=== PATIENT | female | born 1995 | race Caucasian/White ===

== ENCOUNTER 2021-09-15 05:39 | Outpatient (CLI) | payer MEDICAID ==
[~2021-09-15] VITALS: Ht 152.4 cm; Wt 100.8 kg
[2021-09-15] MEDS ORDERED: LEVO50CA4 PO (13:46)
[2021-09-15] MEDS ORDERED: VENL100T2 PO (13:46)
[2021-09-15] MEDS ORDERED: PROC10TA10 PO (13:46)
[2021-09-15] MEDS ORDERED: PANT40TA52 PO (13:46)
[2021-09-15] MEDS ORDERED: GALC120P SQ (13:46)
[2021-09-15] MEDS ORDERED: NRT10C PO (13:46)
[2021-09-15] MEDS ORDERED: MEMA5TAB43 PO (13:46)
[2021-09-15] MEDS ORDERED: MIRT-68 PO (13:46)
== END 2021-09-15 14:07 | disposition home or self-care (01) ==
LOC: PREOP 05:39
PROVIDERS: ATTEND Otolaryngology Otolaryngology/Facial Plastic Surgery
DX: Z01.818 Encounter for other preprocedural examination (principal)

== ENCOUNTER 2021-09-22 06:51 | Day surgery (SDC) | payer MEDICAID ==
[2021-09-22] VITALS (11 sets, daily range): BP systolic 118–131; BP diastolic 75–98
[~2021-09-22] VITALS: Ht 152.4 cm; Wt 100.8 kg
[~2021-09-22 06:51] MED LIST: GALC120P SQ; LEVO50CA4 PO; MEMA5TAB43 PO; MIRT-68 PO; NRT10C PO; PANT40TA52 PO; PROC10TA10 PO; VENL100T2 PO
--- OUTSIDE RECORDS SUMMARY | 2021-09-22 06:55 | XMS REPORT | Clinical Summary ---
Author Organization Unknown Address Unknown Phone Unavailable Care Team Providers Care Associate Relations Specialist Name Role Phone PP Unavailable Allergies Not on File Medications Not on file Active Problems Not on file Social History Date Tobacco Use Types Packs/Day Years Used Never Assessed Sex Assigned at Date Recorded Not on file Plan of Treatment Not on file Results Not on filefrom Last 3 Months
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
--- OUTSIDE RECORDS SUMMARY | 2021-09-22 06:55 | XMS REPORT | Encounter Summary ---
Author Author [facility] Organization [facility] Address Unknown Phone Unavailable Care Team Providers Care Courtesy Car Driver Name Role Phone Jihan Zavala PCP Encounter Details Care Team Description Date [place] [address] [place] [address] Chronic migraine without aura, intractab le, without status migrainosus (Primary Dx); Headache, chronic daily 09/20/2021 Video Visit [facility] [address] [place] [address] Social History Date Tobacco Use Types Packs/Day Years Used Never Smoker Smokeless Tobacco: Never Used Comments Alcohol Use Standard Drinks/Week No 0 (1 standard drink = 0.6 o z pure alcohol) Sex Assigned at Date Recorded Not on file documented as of this encounter Progress Notes * Jaciel Euceda MD - 09/20/2021 12:30 PM CDT [facility] Neurology Follow Up Note [facility] Date: 09/20/2021 Patient Name: Mookie Garcia PCP: YENY James Was patient consent obtained for video visit/telemedicine platform? Yes For date of service 09/20/2021, the patient was located at her home and I am see ing the patient via epic video visit. from the below location: [facility] [address] [place] [id number] Interval History Mookie was seen today in follow-up regarding her history of chronic daily rita lc headache without aura. She reports she continues to have severe headache on a daily basis. Headaches c ontinue to be a frontal dominant throbbing pain associated with nausea and photo phobia. She will have significant headache about 20 days a month. In the past, she has been on multiple preventative medications including divalpr oex, topiramate, amitriptyline, venlafaxine, verapamil, indomethacin, pregabalin , Abilify, zonisamide, sertraline, buspirone, propranolol, gabapentin, tizanidin e, cyclobenzaprine, Aimovig and lamotrigine. She has tried and failed Botox inj ections. She did have some benefit from cranial nerve blocks, but these were discontinued due to her insurance companies denial of payment. She has also used a TENS unit and Cefaly with some temporary benefit. Currently she is on memantine 5 mg twice daily, nortriptyline 10 mg daily and Em gality 120 mg subcutaneous injection every 28 days. For acute headache, she use s a combination of nortriptyline 10 mg, prochlorpromazine 10 mg and diphenhydram ine 25-50 mg. She tolerates this regimen and does feel that it is helpful. She reports no significant change in her overall headache frequency or intensity with the addition of memantine to her preventative regimen. She reports no alana arent side effects associated with the medication. Past History and Review of Systems Past Medical History: Diagnosis Date Anemia Anxiety Depression Migraine Past Surgical History: Procedure Laterality Date CHOLECYSTECTOMY 11/09/2016 CYST REMOVAL 10/22/2019 Social History Ms. Garcia reports that she has never smoked. She has never used smokeless to bacco. She reports that she does not drink alcohol and does not use drugs. Family History Problem Relation Age of Onset Migraines Mother Hypertension Mother Mental illness Mother Migraines Sister Diabetes Maternal Grandmother Migraines Sister Migraines Sister Review of Systems Review of Systems All other systems negative unless noted elsewhere. Allergies Allergen Reactions Penicillins Rash Medications (Not in a hospital admission) Scheduled Meds Continuous Infusions PRN Meds Physical Exam Vitals Available and Taken on Home Machine: No data recorded Video visits do not have the supported technology for physician to document hear t and lungs exams, and may not have ability to fully document vital signs. Imaging Studies Radiology: IR Lumbar puncture w fluoro Narrative: Patient: MOOKIE GARCIA Sex#: F #: [id number] Ned#: [id number] Location: [address] [address] Procedure Requested: [id number] IR LUMBAR PUNCTURE W FLUORO Reason for Exam: Chronic migraine Exam Ordered: 12/24/2019 1248 Exam Date/Time: 12/24/2019 1308 Begin exam date/time: 12/24/2019 1308 DATE: 12/24/2019 1:24 PM EXAM: IR LUMBAR PUNCTURE W FLUORO INDICATION: Chronic migraine Headache, chronic daily IIH (idiopathic intracranial hypertension) COMPARISON: None. Technique/findings: The lumbar spine was visualized fluoroscopically. The region overlying the lumbar spine was prepared and draped in sterile technique. Local anesthetic was applied with 1% lidocaine. Following this, a 22-gauge spinal needle was advanced to the L2-L3 interspace with prompt return of clear, colorless CSF. Opening pressure measured at approximately 23 cm H2O 11 cc of CSF was collected for laboratory analysis. Needle removed. Hemostasis achieved. No immediate competitions and the patient tolerated the procedure well. Impression: Successful lumbar puncture as described. Preprocedure: Risk, benefits, and alternatives were discussed in detail with the patient. She agreed to proceed. Procedural pause performed in the presence of all assisting personnel. Assessment and Plan There are no hospital problems to display for this patient. Mookie continues to report chronic daily headache and reports no overall montanez e in her headache frequency or intensity with the addition of low-dose memantine 5 mg twice daily. Today, I have instructed her to increase memantine to 10 mg twice daily. In 1 w tolowa dee-ni', she will also increase nortriptyline to 20 mg daily for a period of 2 weeks , then 30 mg daily. She will continue to use a combination of nortriptyline 10 mg, prochlorperazine 10 mg and diphenhydramine 25-50 mg as rescue medication for severe headache. She did say that she plans to call her insurance carrier to see if they will now cover cranial nerve blocks as a part of her therapeutic regimen. I have asked her to return in 8 weeks, to report on her response to these change s in her medical regimen. >50% of this 25 minute video visit spent in coordination of care and counseling. Jaciel Euceda MD 09/20/2021, 12:37 PM documented in this encounter Plan of Treatment Not on filedocumented as of this encounter Visit Diagnoses Diagnosis Chronic migraine without aura, intracta ble, without status migrainosus - Primary Headache, chronic daily documented in this encounter Care Teams Start Date End Date Courtesy Car Driver Relationship Specialty 12/11/19 Jihan Zavala ARNP PCP - General [address] [address] documented as of this encounter
--- OUTSIDE RECORDS SUMMARY | 2021-09-22 06:55 | XMS REPORT | Clinical Summary ---
Author Author [facility] Organization [facility] Address Unknown Phone Unavailable Care Team Providers Care Gas Reverser Name Role Phone Jihan Zavala PCP Allergies Comments Active Allergy Reactions Severity Noted Date Penicillins Rash Low 02/21/2018 Medications End Date Status Medication Sig Dispensed Refills Start Date Active mirtazapine (REMERON) 15 Take 15 mg by 0 03/26 MG tablet mouth 9 nightly. Active levothyroxine (SYNTHROID, TAKE 1 TABLET 1 LEVOTHROID) 25 MCG tablet (25 MCG) BY 9 MOUTH ONCE DAILY FOR 90 DAYS Active desvenlafaxine succinate Take 50 mg by 0 (PRISTIQ) 50 MG 24 hr mouth daily. tablet Active cholecalciferol, vitamin Take 50,000 0 D3, (VITAMIN D3 ORAL) Units by mouth daily. Active prochlorperazine TAKE 1 TABLET 30 tablet 5 02 (COMPAZINE) 10 MG (10 MG TOTAL) 1 tabletIndications: BY MOUTH Chronic migraine, Nausea EVERY 8 (EIGHT) HOURS NEEDED. WITH MIGRAINE COCKTAIL Active EMGALITY PEN 120 mg/mL INJECT 1 ML 1 mL injectionIndications: (120 MG 1 Intractable chronic TOTAL) migraine without aura and UNDERTHE SKIN without status EVERY 28 migrainosus DAYS. Active nortriptyline (PAMELOR) 3 caps daily 90 capsule 11 1 10 MG capsule 1 09/15/2022 Active memantine (NAMENDA) 10 MG Take 1 tablet 60 tablet 11 tablet (10 mg total) 1 by mouth 2 (two) times a day. 09/20/2021 Discontinued (Therapy comple ej) nortriptyline (PAMELOR) Take 1 30 capsule 5 10 MG capsuleIndications: capsule (10 1 Chronic migraine without mg total) by aura, intractable, mouth without status nightly. migrainosus 09/20/2021 Discontinued (Therapy comple ej) memantine (NAMENDA) 5 MG Take 1 tablet 60 tablet 3 tabletIndications: (5 mg total) 1 migraine by mouth 2 (two) times a day. 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 03/10/2021 Migraine with aura and without status migrainosus, no t intractable 12/11/2019 Headache, chronic daily 09/28/2019 Nausea 09/28/2019 Chronic migraine without aura, intractable, without s tatus migrainosus 02/21/2018 Vertigo 02/21/2018 Encounters Care Team Description Date Type Specialty Jaciel Euceda MD Chronic migraine without aura, intractab le, without status migrainosus (Primary Dx); Headache, chronic daily 09/20/2021 Video Visit Neurology Diamond Jensen DO Medication Refill 07/18/2021 Refill Neurology Maria De Jesus Casanova NP Billing questions (nerve block) 07/18/2021 Telephone Neurology Diamond Jensen DO Chronic migraine without aura, intractab le, without status migrainosus (Primary Dx); Bilateral occipital neuralgia; Cervicalgia 07/10/2021 Video Visit Neurology Diamond Jensen DO Appointment 07/07/2021 Telephone Neurology Maria De Jesus Casanova NP 07/05/2021 Documentation Neurology Maria De Jesus Casanova NP 07/05/2021 Documentation Neurology Maria De Jesus Casanova NP 06/26/2021 Documentation Neurology from Last 3 Months Family History Medical History Relation Name Comments Diabetes Maternal Grandmother Hypertension Mother Mental illness Mother Migraines Mother Migraines Sister 1 Veronica Migraines Sister 2 Kimberli Migraines Sister 3 Chari Relation Name Status Comments Father Alive Maternal Grandmother Mother Alive Sister 1 Veronica Alive Sister 2 Kimberli Alive Sister 3 Chari Alive Social History Date Tobacco Use Types Packs/Day Years Used Never Smoker Smokeless Tobacco: Never Used Tobacco Cessation: Counseling Given: No Comments Alcohol Use Standard Drinks/Week No 0 (1 standard drink = 0.6 o z pure alcohol) Sex Assigned at Date Recorded Not on file Last Filed Vital Signs Reading Time Taken Comments Vital Sign 117/77 06/20/2021 12:47 PM CDT Blood Pressure 91 06/20/2021 12:47 PM CDT Pulse 37.2 C (98.9 F) 12/24/2019 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 Temperature 20 12/24/2019 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 Respiratory Rate 97% 12/24/2019 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 Oxygen Saturation - - Inhaled Oxygen Concentration 101.6 kg (224 lb) 06/20/2021 12:47 PM CDT Weight 165.1 cm (5' 5") 06/20/2021 12:47 PM CDT Height 37.28 06/20/2021 12:47 PM CDT Body Mass Index Plan of Treatment Health Maintenance Due Date Last Done Comments Td/Tdap# 1995 HPV Vaccine (1 - 2-dose 2007 series) COVID-19 Vaccine (1) 2008 Cervical Cancer Screening 2017 via Pap Smear Influenza Vaccine (#1) 2021 09/03/2019, 08/14/2018, 08/09/2015 Pneumococcal Vaccine: Aged Out No longer eligib le based on patient's age to Pediatrics (0 to 5 Years) complete this topic and At-Risk Patients (6 to 64 Years) Results Not on filefrom Last 3 Months Insurance Type Payer Benefit Subscriber ID Effective Phone Address Plan / Dates Group MEDICAID MANAGED CARE [facility] [id number] 2017-[address] ([place]) [facility] [address] [place] [phone] Gabino Garciariela Personal/F Self 1995 [address] [facility] (Home) [place], [place] [address] Gabino Garciariela Personal/F Self 1995 [address] [facility] (Home) [place], [place] [address] Advance Directives For more information, please contact: [phone] 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
--- NOTE | 2021-09-22 06:58 | Progress Note-Pre Operative ---
Pre-Operative Progress Note H&P Reviewed The H&P was reviewed, patient examined and no changes noted. Date Seen by Provider: Sep 22, 2021 Time Seen by Provider: 07:00 Date H&P Reviewed: Sep 22, 2021 Time H&P Reviewed: 07:00 Pre-Operative Diagnosis: Rec Tons/ Tonsillar Hypertrophy GABBY JAVED MD Sep 22, 2021 06:58
[2021-09-22] MEDS ORDERED: LACTATED RINGERS 1,000 ML IV PRN (07:00)
[2021-09-22] MEDS ORDERED: fentaNYL INJ 100 MCG/2 ML AMP ONE (07:15)
[2021-09-22] MEDS ORDERED: MIDAZOLAM 2 MG/2 ML (VERSED) VIAL ONE (07:16)
[2021-09-22] MEDS ORDERED: SEVOFLURANE (ULTANE) 15 ML INHAL SOLN ONE (07:21)
[2021-09-22] MEDS ORDERED: proPOfol 200 MG/20 ML (DIPRIVAN) VIAL IV ONE (07:21)
[2021-09-22] MEDS ORDERED: ROCURONIUM 10 MG/ML 5 ML SYRINGE IV ONE (07:21)
[2021-09-22] MEDS ORDERED: LIDOCAINE PF 2% 5 ML (XYLOCAINE) VIAL ONE (07:21)
[2021-09-22] MEDS ORDERED: ONDANSETRON 4 MG/2 ML (SDV) Z0FRAN ONE (07:21)
[2021-09-22 07:24] LABS: BASOPHILS % (AUTO) 0 % (0-10); EOSINOPHILS # (AUTO) 0.2 10^3/uL (0.0-0.3); EOSINOPHILS % (AUTO) 2 % (0-10); HEMATOCRIT 39 % (35-52); LYMPHOCYTES % (AUTO) 33 % (12-44); MEAN CORPUSCULAR HEMOGLOBIN 30 pg (25-34); MEAN CORPUSCULAR HGB CONC 33 g/dL (32-36); MEAN CORPUSCULAR VOLUME 90 fL (80-99); MEAN PLATELET VOLUME 10.5 fL (9.0-12.2); MONOCYTES # (AUTO) 0.5 10^3/uL (0.0-1.0); MONOCYTES % (AUTO) 6 % (0-12); NEUTROPHILS # (AUTO) 5.3 10^3/uL (1.8-7.8); NEUTROPHILS % (AUTO) 59 % (42-75); PLATELET COUNT 376 10^3/uL (130-400); WHITE BLOOD COUNT 9.1 10^3/uL (4.3-11.0)
[2021-09-22] MEDS ORDERED: HYDROmorphone 2 MG/ML VIAL (DILAUDID) ONE (07:32)
[2021-09-22] MEDS ORDERED: GLYCOPYRROLATE 0.2 MG/ML (ROBINUL) 2 ML VIAL ONE (07:35)
[2021-09-22] MEDS ORDERED: NEOSTIGMINE 3 MG/3 ML VIAL ONE (07:36)
--- NOTE | 2021-09-22 07:48 | Progress Note-Post Operative ---
Post-Operative Progess Note Surgeon (s)/Cut Off Sawyer (s) Surgeon GABBY JAVED MD Cut Off Sawyer n/a Pre-Operative Diagnosis Rec Tons/ Tonsillar Hypertrophy Post-Operative Diagnosis same Post-Op Procedure Note Date of Procedure: Sep 22, 2021 Name of Procedure Performed: T/A Description & Findings Description and Findings: n/a Anesthesia Type get Estimated Blood Loss minimal Packing none. Specimen(s) collected/removed tonsils GABBY JAVED MD Sep 22, 2021 07:48
[2021-09-22] MEDS ORDERED: ONDANSETRON 4 MG/2 ML (SDV) Z0FRAN IVP PRN (08:00)
[2021-09-22] MEDS ORDERED: HYDROmorphone 2 MG/ML VIAL (DILAUDID) IV ONE (08:00)
[2021-09-22] MEDS ORDERED: APAP 325 MG/10.15 ML LIQ (TYLENOL) UDC PO PRN (08:00)
[2021-09-22] MEDS ORDERED: NS IV 1000 ML 1,000 ML IV SCH (08:00)
[2021-09-22] MEDS ORDERED: HYDROcodone/APAP 7.5MG-325 MG/15 ML (LORTAB) UDC PO PRN (08:00)
--- NOTE | 2021-09-22 08:07 | Anesthesia-General Post-Op ---
General Patient Condition Mental Status/LOC: Same as Preop Cardiovascular: Satisfactory Nausea/Vomiting: Absent Respiratory: Satisfactory Pain: Controlled Complications: Absent Post Op Complications Complications None Follow Up Care/Instructions Patient Instructions None needed. Anesthesia/Patient Condition Patient Condition Patient is doing well, no complaints, stable vital signs, no apparent adverse anesthesia problems. No complications reported per nursing. D/C home per [facility] Criteria: Yes JIE CORDERO CRNA Sep 22, 2021 08:06
[2021-09-22] MEDS ORDERED: DEXAINTSOL PO (09:22)
[2021-09-22] MEDS ORDERED: TETRACAINESUCKERS MT (09:22)
[2021-09-22] MEDS ORDERED: HYDR15SO8 PO (09:22)
[2021-09-22] MEDS ORDERED: AZIT200S47 PO (09:22)
== END 2021-09-22 09:55 | disposition home or self-care (01) ==
LOC: SDC 06:51
PROVIDERS: ATTEND Otolaryngology Otolaryngology/Facial Plastic Surgery
DX: J03.91 Acute recurrent tonsillitis, unspecified (principal); J35.2 Hypertrophy of adenoids; J98.8 Other specified respiratory disorders; J35.8 Other chronic diseases of tonsils and adenoids; F41.9 Anxiety disorder, unspecified; F32.A Depression, unspecified; E66.9 Obesity, unspecified; Z68.41 Body mass index [BMI] 40.0-44.9, adult; G47.30 Sleep apnea, unspecified; Z99.89 Dependence on other enabling machines and devices; E07.9 Disorder of thyroid, unspecified; Z88.0 Allergy status to penicillin; Z79.899 Other long term (current) drug therapy; Z79.890 Hormone replacement therapy; Z11.2 Encounter for screening for other bacterial diseases
CPT/HCPCS: 36415; 84703; 85025; 87081; 88304